=== PATIENT | female | born 1975 | race Caucasian/White ===

== ENCOUNTER → 2017-12-21 | Outpatient (CLI) | payer BC | LOC: COL.RAD 10:42 | DX: E04.2 Nontoxic multinodular goiter (principal) ==

== ENCOUNTER → 2018-01-06 | Outpatient (CLI) | payer BC ==
[~2018-01-06] VITALS: Ht 154.9 cm; Wt 84.0 kg
[~2018-01-06] MED LIST: CLARITIN 1010 MG/TAB PO; DIOVAN 40MG40 MG PO; PRILOSEC10 MG PO
[2018-01-06 09:26] VITALS: BP 144/88; PULSE 94
[2018-01-06 10:35] VITALS: BP 149/102; PULSE 99
== END ==
LOC: COL.RAD 08:38
DX: E04.2 Nontoxic multinodular goiter (principal)

== ENCOUNTER 2018-04-11 10:42 | Inpatient (IN) | payer BC ==
[2018-04-11] VITALS (9 sets, daily range): BP systolic 80–124; BP diastolic 39–82; PULSE 53–91; TEMP 97.4–98.3
[~2018-04-11] VITALS: Ht 154.9 cm; Wt 82.3 kg
[2018-04-11] MEDS ORDERED: VALSART/HCTZ TAB 320 PO (11:25)
[2018-04-11] MEDS ORDERED: DIOVAN HCT 25 M1 TA1 PO (17:09)
[2018-04-12 04:20] VITALS: BP 103/56; PULSE 83; TEMP 98
[2018-04-12 07:56] VITALS: BP 100/54; PULSE 61; TEMP 98.3
== END 2018-04-12 11:31 | disposition home or self-care (01) | DRG 627 ==
LOC: SDCO 10:42 → SURG 10:42 → EDSTATUS 12:30 → SURG 16:00 → SDCO 04-12 09:54 → SURG 04-12 09:55
PROVIDERS: Surgery
PROC: 0GBG0ZZ Excision of Left Thyroid Gland Lobe, Open Approach (ICD-10-PCS; principal; 2018-04-11 12:30)
DX: D34 Benign neoplasm of thyroid gland (principal); I10 Essential (primary) hypertension
CPT/HCPCS: OP; J0690; J1100; J1170; J2270; J2405; J2704; J2765; J3010; J7120